=== PATIENT | female | born 1990 | race Caucasian/White ===

== ENCOUNTER 2019-05-02 03:27 | Emergency (ER) | payer SELFPAY ==
[~2019-05-02] VITALS: Ht 152.4 cm; Wt 44.5 kg
[2019-05-02 03:31] VITALS: BP 106/56; TEMP 98.6
[2019-05-02] MEDS ORDERED: ZOFRAN ODT4 MG PO (04:44)
[2019-05-02 05:07] VITALS: PULSE 72
== END 2019-05-02 05:07 | disposition home or self-care (01) ==
LOC: COL.ER 03:27
DX: J10.1 Influenza due to other identified influenza virus with other respiratory manifestations (principal); R11.2 Nausea with vomiting, unspecified

== ENCOUNTER 2023-04-23 10:00 | Day surgery (SDC) | payer BC ==
[~2023-04-23] VITALS: Ht 152.4 cm; Wt 47.4 kg
[~2023-04-23 10:00] MED LIST: Glycopyrrolate 0.2 MG/ML 1 ML VIAL ONE; LR 1,000 ML IV SCH; Lidocaine PF 2% (20 MG/ML) 5 ML VIAL ONE; Ondansetron 4 MG/2 ML VIAL IV PRN; ZOFRAN ODT4 MG PO
[2023-04-23 10:32] VITALS: BP 104/65; PULSE 64; TEMP 97.7
[2023-04-23 12:15] VITALS: BP 94/59; PULSE 88; TEMP 97.5
--- NOTE | 2023-04-23 12:15 | NUR ---
PATIENT AMBULATED TO CHAIR WITH STEADY GAIT, ASSIST OF 2. ALERT AND AWAKE. DENIES PAIN, NAUSEA AND SHORTNESS OF BREATH. BREATHING REGULAR AND UNLABORED ON ROOM AIR. SKIN WARM AND DRY. IV IN PLACE. NURSE HANDOFF COMPLETED IN ROOM. SEE CHART FOR VITAL SIGNS. PATIENT STATED SHE OFTEN FEELS COLD, WARM BLANKET APPLIED. PATIENT HAD APPLE JUICE AND JELLO. BOTH FOOD AND DRINK TOLERATED WELL. CALL LIGHT IN REACH.
[2023-04-23 12:20] VITALS: BP 95/60; PULSE 60
[2023-04-23 12:30] VITALS: BP 107/71; PULSE 58
[2023-04-23 12:45] VITALS: BP 105/62; PULSE 60
[2023-04-23 12:50] VITALS: BP 108/60; PULSE 60
--- NOTE | 2023-04-23 13:12 | NUR ---
MET WITH PATIENT IN ROOM TO DISCUSS PROCEDURE. 1300: PATIENT AMBULATED WITH STEADY GAIT TO RESTROOM AND VOIDED WITHOUT DIFFICULTY. 1303: DISCHARGE TEACHING COMPLETED WITH PRINTED EDUCATION AND INSTRUCTIONS SENT HOME WITH PATIENT. WORK RELEASE NOTE SENT WITH PATIENT. PATIENT VERBALIZED UNDERSTANDING OF TEACHING. 1306: IV REMOVED. GAUZE AND COBAN PLACED OVER SITE. 1312: [facility]
== END 2023-04-23 13:12 | disposition home or self-care (01) ==
LOC: SDCO 10:00
DX: K64.4 Residual hemorrhoidal skin tags (principal); K92.1 Melena; K62.89 Other specified diseases of anus and rectum; R15.2 Fecal urgency
CPT/HCPCS: J2704; J7120